=== PATIENT | female | born 1935 | race Caucasian/White ===

== ENCOUNTER 2017-09-14 12:58 | Emergency (ER) | payer MEDICARE ==
[~2017-09-14] VITALS: Ht 154.9 cm; Wt 79.4 kg
== END 2017-09-14 15:14 | disposition home or self-care (01) ==
LOC: ED 12:58
DX: S01.81XA Laceration without foreign body of other part of head, initial encounter (principal); Z88.0 Allergy status to penicillin; Z88.5 Allergy status to narcotic agent; Z88.8 Allergy status to other drugs, medicaments and biological substances; W18.09XA Striking against other object with subsequent fall, initial encounter; Y93.89 Activity, other specified; Y92.89 Other specified places as the place of occurrence of the external cause; Y99.8 Other external cause status